=== PATIENT | male | born 1950 | race Hispanic/Latino ===

== ENCOUNTER → 2020-04-04 | Day surgery (SDC) | payer MEDICARE, OTHER ==
[2020-04-01 15:15] LABS: BASOPHILS # (AUTO) 0.1 (0.0-0.1); BASOPHILS % 0.7 % (0.0-1.0); EOSINOPHILS # (AUTO) 0.1 (0.0-0.4); EOSINOPHILS % 1.9 % (0.0-6.0); HEMATOCRIT 44.5 % (38.2-49.6); HEMOGLOBIN 15.3 g/dL (14.0-18.0); LYMPHOCYTES # (AUTO) 2.3 (1.0-3.2); LYMPHOCYTES % 31.7 % (18.0-39.1); MEAN CORPUSCULAR HEMOGLOBIN 31.5 pg (28-32); MEAN CORPUSCULAR HGB CONC 34.4 g/dL (31-35); MEAN CORPUSCULAR VOLUME 91.6 fL (81-99); MONOCYTES # (AUTO) 0.7 (0.2-0.8); MONOCYTES % 9.7 % (4.4-11.3); NEUTROPHILS # (AUTO) 4.1 (2.1-6.9); NEUTROPHILS % 55.9 % (38.7-80.0); PLATELET COUNT 179 x10e3/uL (140-360); RED BLOOD COUNT 4.86 x10e6/uL (4.3-5.7); RED CELL DISTRIBUTION WIDTH 13.5 % (11.7-14.4)
[~2020-04-04] MED LIST: FINASTERIDE5 MG PO; FLOMAX0.4 MG PO; MIDAZOLAM HCL 2 MG/2 ML VIAL ONE; OMEPRAZOLE40 MG PO; PROPOFOL IV EMULSION 10 MG/ML 20 ML VIAL ONE
[2020-04-04 08:15] VITALS: BP 133/83
== END | disposition home or self-care (01) ==
LOC: OR 05:44
PROVIDERS: ATTEND Internal Medicine Gastroenterology
DX: Z12.11 Encounter for screening for malignant neoplasm of colon (principal); K63.5 Polyp of colon; K57.30 Diverticulosis of large intestine without perforation or abscess without bleeding; K64.8 Other hemorrhoids; Z71.3 Dietary counseling and surveillance; E66.3 Overweight; Z01.810 Encounter for preprocedural cardiovascular examination; Z01.812 Encounter for preprocedural laboratory examination; Z20.828 Contact with and (suspected) exposure to other viral communicable diseases; Z68.26 Body mass index [BMI] 26.0-26.9, adult
CPT/HCPCS: 36415; 45385; 85025; 93005; J2250; J2704; U0002; 45378

== ENCOUNTER → 2025-01-22 | Day surgery (SDC) | payer MEDICARE, OTHER ==
[2025-01-18 08:44] LABS: BASOPHILS % 0.6 % (0.0-1.0); EOSINOPHILS % 2.4 % (0.0-6.0); LYMPHOCYTES % 24.5 % (18.0-39.1); MONOCYTES % 7.0 % (4.4-11.3); NEUTROPHILS % 65.2 % (38.7-80.0); RED CELL DISTRIBUTION WIDTH 13.9 % (11.7-14.4)
[~2025-01-22] MED LIST changes: +ASPIRIN81 MG PO; +FENTANYL CITRATE/PF 100MCG/2 ML INJ ONE; +LACTATED RINGER'S 1,000 ML ONE; +LIDOCAINE HCL 2% LOCAL INJ 5 ML SDV VIAL INJ ONE; +LIPITOR10 MG PO; -MIDAZOLAM HCL 2 MG/2 ML VIAL ONE; +PROPOFOL IV EMULSION 50 ML IV ONE; +VIT D3 PO; +ZESTRIL10 MG PO
[2025-01-22 12:48] VITALS: TEMP 97.2
[2025-01-22 13:10] VITALS: BP 134/79; PULSE 60; RESP 18; O2SAT 99
== END | disposition home or self-care (01) ==
LOC: OR 08:17
PROVIDERS: ATTEND Internal Medicine Gastroenterology
DX: Z09 Encounter for follow-up examination after completed treatment for conditions other than malignant neoplasm (principal); D12.2 Benign neoplasm of ascending colon; D12.5 Benign neoplasm of sigmoid colon; K57.30 Diverticulosis of large intestine without perforation or abscess without bleeding; K64.8 Other hemorrhoids; K21.9 Gastro-esophageal reflux disease without esophagitis; I10 Essential (primary) hypertension; Z71.89 Other specified counseling; E78.5 Hyperlipidemia, unspecified; N40.0 Benign prostatic hyperplasia without lower urinary tract symptoms; Z01.810 Encounter for preprocedural cardiovascular examination; Z01.812 Encounter for preprocedural laboratory examination; Z79.82 Long term (current) use of aspirin; Z79.899 Other long term (current) drug therapy; Z68.26 Body mass index [BMI] 26.0-26.9, adult; Z71.3 Dietary counseling and surveillance; Z91.81 History of falling
CPT/HCPCS: 36415; 45378; 45385; 85025; 93005; J2003